=== PATIENT | male | born 1940 | race Caucasian/White ===

== ENCOUNTER → 2016-12-04 | Outpatient (CLI) | payer MEDICARE, BC ==
[~2016-12-04] MED LIST: AMLO5TAB2 PO; LISI-167 PO; OMNIPAQUE 350 MG/ML, 75ML BOTTLE ONE; SIMV20TA3 PO
== END | disposition home or self-care (01) ==
LOC: CFH 13:56
PROVIDERS: ATTEND Radiology Radiation Oncology
DX: C38.4 Malignant neoplasm of pleura (principal)
CPT/HCPCS: 71260; Q9967

== ENCOUNTER → 2017-03-19 | Outpatient (CLI) | payer MEDICARE, BC ==
[~2017-03-19] MED LIST changes: -OMNIPAQUE 350 MG/ML, 75ML BOTTLE ONE
== END | disposition home or self-care (01) ==
LOC: CFH 15:01
PROVIDERS: ATTEND Internal Medicine
DX: C78.2 Secondary malignant neoplasm of pleura (principal); E78.5 Hyperlipidemia, unspecified; R94.6 Abnormal results of thyroid function studies; R09.89 Other specified symptoms and signs involving the circulatory and respiratory systems; D64.9 Anemia, unspecified; D72.819 Decreased white blood cell count, unspecified; J44.9 Chronic obstructive pulmonary disease, unspecified; I10 Essential (primary) hypertension; G46.7 Other lacunar syndromes; C45.9 Mesothelioma, unspecified; J30.9 Allergic rhinitis, unspecified; E03.9 Hypothyroidism, unspecified; Z87.891 Personal history of nicotine dependence
CPT/HCPCS: 71020